=== PATIENT | male | born 1950 | race Caucasian/White ===

== ENCOUNTER 2019-02-12 19:39 | Observation (INO) ==
[2019-02-12] MEDS ORDERED: D5% in Water 1,000 ML IVC PRN (22:01)
[2019-02-12] MEDS ORDERED: Dextrose Gel 15 GM/37.5 ML TUBE PO PRN ×2 (22:01)
[2019-02-12] MEDS ORDERED: *HR* Dextrose 50 % in Water (Syg) 50 ML SYRINGE IVP PRN (22:01)
[2019-02-12] MEDS: Insulin DETEMIR 100 UNIT/ML X5UNITS SQ SCH (23:15)
[2019-02-12] MEDS: Insulin LISPRO 300 UNITS/3 ML VIAL SQ SCH (23:16)
[2019-02-13] MEDS ORDERED: *HR* Dextrose 50 % in Water (Vial) 50 ML VIAL IVP PRN (08:00)
[2019-02-13] MEDS: predniSONE 20 MG TABLET PO SCH (08:42)
[2019-02-13] MEDS: Insulin LISPRO 300 UNITS/3 ML VIAL SQ SCH ×4 (08:44→19:56)
--- NOTE | 2019-02-13 09:57 | Internal Med History&Physical ---
Date of Encounter: 02/13/19 Time of Encounter: 09:51 Assessment and Plan (1) Acute psychosis Current visit: No Status: Acute Pt with acute psychosis off this prescribed anti-psychotic. He was medically evaluated and cleared by psychiatry on day of admission at [facility] ED with recommendations to admit to observation with resumption of all home meds. He has a suspected underlying neurodegenerative process with psychosis such as lewy body dementia. Will resume seroquel at 50mg in AM and 100mg in PM given patient's agitation and difficulty with sleep. Will contact patient's outpatient pharmacy and try to assess why patient is prescribed prednisone and how long he has been taking. Will wean or discontinue if possible given underlying diabetes and psychosis. Will check labs in AM. (2) Cognitive and neurobehavioral dysfunction Current visit: Yes Status: Chronic Unclear etiology. 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 Will monitor with outpatient regimen with slight increase in quetiapine dosing. (3) Hypertension Current visit: Yes Status: Chronic Uncontrolled. Will increase outpatient beta-burak dose and monitor. Qualifiers: Hypertension type: unspecified Qualified Code(s): I10 - Essential (primary) hypertension (4) Hypothyroidism Current visit: Yes Status: Chronic Will continue replacement and repeat TSH. Qualifiers: Hypothyroidism type: unspecified Qualified Code(s): E03.9 - Hypothyroidism, unspecified (5) Depression Current visit: Yes Status: Chronic Qualifiers: Depression Type: unspecified Qualified Code(s): F32.9 - Major depressive disorder, single episode, unspecified (6) Subarachnoid cyst Current visit: No Status: Chronic Stable by recent imaging. Will monitor. (7) CKD (chronic kidney disease) stage 4, GFR 15-29 ml/min Current visit: No Status: Chronic GFR stable. Will monitor. (8) Hyperlipidemia Current visit: No Status: Chronic Stable. Will continue current statin regimen. Qualifiers: Hyperlipidemia type: unspecified Qualified Code(s): E78.5 - Hyperlipidemia, unspecified (9) Diabetes mellitus Current visit: No Status: Chronic Recent hgbA1c at goal. Will continue diabetic diet with basal insulin with sliding scale coverage. Qualifiers: Diabetes mellitus type: type 2 Diabetes mellitus [facility] insulin use: with [place] use Diabetes mellitus complication status: with kidney complications Diabetes mellitus complication detail: with chronic kidney disease Chronic kidney disease stage: stage 4 (severe) Qualified Code(s): E11.22 - Type 2 diabetes mellitus with diabetic chronic kidney disease; N18.4 - Chronic kidney disease, stage 4 (severe); Z79.4 - longterm (current) use of insulin Internal Medicine - H&P: HPI Chief complaint: Agitation Admitted From: Home Plans for Post Hospital Care: Home History of present illness: Mr. Bentley is a 68 year old male with underlying psychiatric condition, stage IV CKD, DM, and HTN that presented to [facility] ED with family who reported patient was more aggressive and agitated after being off his prescribed seroquel for several days. Patient has undergone fairly extensive medical and psychiatric evaluation over last 6 months for his persistent psychosis and cognitive impairment. Patient was suspected of having a mood disorder such as bipolar or a possible neurocognitive degenerative process such as a lewy body dementia. He was evaluated in the ED and had a negative medical work-up. He was then seen by psychiatry who recommended resumption of home seroquel dosing and monitoring rather than psychiatric admission. Pt was then transferred to the [facility] for observation admission to resume home seroquel and supportive care for his acute psychosis. Upon evaluation this morning, patient was uncertain as to why he is taking prednisone and how long he has been taking medication when asked. He notes that he feels better overall, but notes that he had trouble sleeping last night and attributes his insomnia to previously reduced seroquel dose, stating that he though much more clearly and slept better when on 200mg daily. He had no acute complaints or concerns. Family not present at time of examination to provide any collateral history. Past Med Surg Social Fam HX - Past Medical History Medical history: CHF, COPD, diabetes, hypertension, renal disease, thyroid disease Psychiatric history: anxiety, depression - Past Surgical History Surgical History: appendectomy Additional surgical history: Right Elbow - Social History Smoking Status: Former smoker Smokeless Tobacco Status: No Alcohol use: none Drug use: none - Family History Mother Family Member Ethnicity: Non- Living Status: Hx Family Cardiac Disorders: Yes Hx Family Respiratory Disorders: Yes Hx Family Cancer: Yes Hx Family GI Disorders: No Hx Family Endocrine Disorder: Yes Hx Family Neuromuscular Disorders: No Hx Family Neurologic Disorders: No Hx Family HEENT Disorders: No Hx Family Autoimmune Disorders: No Father Adopted: No Family Member Ethnicity: Non- Living Status: Hx Family Cardiac Disorders: Yes Hx Family Respiratory Disorders: Yes Hx Family Cancer: No Hx Family GI Disorders: No Hx Family Endocrine Disorder: Yes Hx Family Neuromuscular Disorders: No Hx Family Neurologic Disorders: No Hx Family HEENT Disorders: No Hx Family Autoimmune Disorders: No Internal Medicine - H&P: Meds Atorvastatin [Lipitor] 20 mg PO DAILY 10/18/17 [History] Cyclobenzaprine [Flexeril] 10 mg PO DAILY 10/18/17 [History] Insulin ASPART [NovoLOG] 35 unit SQ BIDWM 10/18/17 [History] Levothyroxine Sodium [Levo-T] 25 mcg PO DAILY 10/18/17 [History] Fluticasone Propionate Nasal [Flonase] 2 spray IN BID 11/16/18 [History] Insulin Glargine [Lantus] 16 units SQ BID 11/16/18 [History] Pioglitazone HCl 30 mg PO DAILY 11/16/18 [History] Amoxicillin/Clavulanate [Augmentin] 875 mg PO BIDWM tablet 11/23/18 [Rx] Cyanocobalamin (B-12) [Vitamin B12] 1,000 mcg PO DAILY tablet 11/23/18 [Rx] Haloperidol Lactate [Haldol] 2 mg IM Q6HR PRN vial 11/23/18 [Rx] Heparin 5,000 unit SQ Q12HCO vial 11/23/18 [Rx] Insulin LISPRO [HumaLOG] 0 units SQ HS vial 11/23/18 [Rx] Insulin LISPRO [HumaLOG] 0 units SQ TIDAC vial 11/23/18 [Rx] Metoprolol [Lopressor] 25 mg PO BID tablet 11/23/18 [Rx] Nicotine Patch [Nicoderm] 21 mg TD DAILY patch.td24 11/23/18 [Rx] Ondansetron [Zofran] 8 mg IVP Q6HR PRN vial 11/23/18 [Rx] Quetiapine Fumarate [Seroquel] 50 mg PO BID tablet 11/23/18 [Rx] Rivastigmine Patch [Exelon] 4.6 mg TD DAILY patch.td24 11/23/18 [Rx] Vitamin B Complex/Vit C/Vit E [Stresstab] 1 each PO DAILY tablet 11/23/18 [Rx] amLODIPine [Norvasc] 10 mg PO DAILY tablet 11/23/18 [Rx] cloNIDine HCl [CloNIDine HCl] 0.2 mg PO TID tablet 11/23/18 [Rx] hydrALAZINE [HydrALAZINE] 5 mg IVP Q10M PRN vial 11/23/18 [Rx] traZODone [TraZODone] 25 mg PO HS tablet 11/23/18 [Rx] Brimonidine Tartrate/Timolol [Combigan Eye Drops] 5 ml OP 02/12/19 [History] Brimonidine Tartrate/Timolol [Combigan Eye Drops] 5 ml OP DAILY 02/12/19 [History] Brinzolamide 1% [Azopt] 1 drop LEFT EYE BID 02/12/19 [History] Carvedilol 12.5 mg PO BID 02/12/19 [History] Donepezil [Aricept] 5 mg PO HS 02/12/19 [History] Levothyroxine [Synthroid] 25 mcg PO 0630 02/12/19 [History] Sertraline [Zoloft] 50 mg PO DAILY 02/12/19 [History] Zolpidem [Ambien] 10 mg PO HS 02/12/19 [History] predniSONE [PredniSONE] 20 mg PO DAILY 02/12/19 [History] Allergy/AdvReac Type Severity Reaction Status Date / Time Buspirone Allergy Intermediate Confusion Verified 01/09/19 15:13 venlafaxine AdvReac Confusion Verified 01/09/19 15:15 All Systems PM: A 10-system review of systems was performed and is negative for pertinent findings except as documented above in the HPI. - Constitutional Vitals: Temp Pulse Resp BP Pulse Ox 98.6 F 82 18 178/81 99 02/13/19 06:42 02/13/19 06:42 02/13/19 06:42 02/13/19 06:42 02/13/19 06:42 Exam: Gen: Lying in bed, NAD HEENT: NC, AT Neck: Trachea midline, no mass Pulm: No respiratory distress, CTAB CV: Normal S1 and S2, RRR Abdomen: Soft, ND, NT Ext: No C/C/E Neuro: No appreciable motor/sensor deficits Skin: Warm and dry, no rash Psych: A&Ox3 - VTE Reasons for not Prescribing Prophylaxis: Medical contraindication
[2019-02-13] MEDS: AZOPT 1% OP SCH ×2 (16:02→20:02)
[2019-02-13] MEDS: COMBIGAN OPH OP SCH ×3 (16:02→20:02)
[2019-02-13] MEDS: Insulin DETEMIR 100 UNIT/ML X5UNITS SQ SCH (20:01)
[2019-02-14] MEDS: Levothyroxine 25 MCG TABLET PO SCH (05:36)
[2019-02-14 06:08] LABS: Basophils % 0.4 %; Eosinophils # 0.1 K/mcL (0.0-0.6); Eosinophils % 1.5 %; Hematocrit 28.6 % (37.5-50.1); Hemoglobin 8.8 g/dL (12.9-16.9); Immature Granulocytes % 0.5 % (0-4); Lymphocytes # 1.5 K/mcL (0.6-4.6); Lymphocytes % 19.4 %; Mean Corpuscular HGB Conc 30.8 g/dL (31.6-35.5); Mean Corpuscular Hemoglobin 27.4 pg (28.0-33.3); Mean Corpuscular Volume 89.1 fL (83.0-100.0); Mean Platelet Volume 9.7 fL (9.4-12.4); Monocytes # 0.8 K/mcL (0.0-1.3); Monocytes % 10.7 %; Neutrophils # 5.3 K/mcL (1.6-8.9); Platelet Count 191 K/mcL (140-400); Red Blood Count 3.21 M/mcL (4.19-5.50); Segmented Neutrophils % 67.5 %; White Blood Count 7.8 K/mcL (4.3-11.1)
[2019-02-14] MEDS ORDERED: Albuterol 2.5 MG/3 ML NEBULIZER IH PRN (06:33)
[2019-02-14 06:57] LABS: Thyroid Stimulating Hormone 2.275 mcIU/mL (0.340-5.600)
[2019-02-14 07:21] LABS: Albumin 2.1 g/dL (3.5-5.7); Albumin/Globulin Ratio 0.9 (1.1-2.2); Bilirubin,Total 0.2 mg/dL (0.3-1.0); Calcium 7.8 mg/dL (8.6-10.3); Globulin 2.3 g/dL (2.4-3.5); Potassium 3.8 mEq/L (3.5-5.1); Total Protein 4.4 g/dL (6.4-8.9)
[2019-02-14] MEDS: predniSONE 20 MG TABLET PO SCH (08:46)
[2019-02-14] MEDS: Insulin LISPRO 300 UNITS/3 ML VIAL SQ SCH ×4 (08:47→20:15)
[2019-02-14] MEDS: AZOPT 1% OP SCH (09:10)
[2019-02-14] MEDS: COMBIGAN OPH OP SCH ×2 (09:10)
--- NOTE | 2019-02-14 09:40 | Internal Med Progress Note ---
Date of Encounter: 02/14/19 Time of Encounter: 09:38 - Assessment and plan (1) Acute psychosis Current Visit: No Status: Acute Assessment and plan: Appears to be resolving with seroquel resumption. Plan to continue current regimen and have social work consult in place for tomorrow to discuss living situation, home care needs, and assist with compliance with outpatient medication regimen. Recommend re-evaluate need for prednisone with family and/or pharmacy as steroids may be contributing to his psychosis. (2) Cognitive and neurobehavioral dysfunction Current Visit: Yes Status: Chronic Assessment and plan: Chronic. Stable and appears near baseline based on documentation. Possible underlying lewy body dementia. Will continue current donepezil dose and monitor. 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 Levemir dose reduced from 22 to 10 units. Will continue low dose correction insulin. Recommend re-evaluate need for prednisone with family and/or pharmacy. Qualifiers: Diabetes mellitus type: type 2 Diabetes mellitus [place] insulin use: with shelter use Diabetes mellitus complication status: with kidney complications Diabetes mellitus complication detail: with chronic kidney disease Chronic kidney disease stage: stage 4 (severe) Qualified Code(s): E11.22 - Type 2 diabetes mellitus with diabetic chronic kidney disease; N18.4 - Chronic kidney disease, stage 4 (severe); Z79.4 - group home (current) use of insulin (4) Hypertension Current Visit: Yes Status: Chronic Assessment and plan: Uncontrolled despite increase in beta-burak yesterday. Will add amlodipine and monitor. Qualifiers: Hypertension type: unspecified Qualified Code(s): I10 - Essential (primary) hypertension (5) Normocytic anemia Current Visit: Yes Status: Chronic Assessment and plan: Moderate. Hemoglobin near baseline over last month. Likely in part secondary to anemia of chronic disease given significantly reduced GFR. Will obtain anemia studies and repeat CBC in AM. (6) Hypothyroidism Current Visit: Yes Status: Chronic Assessment and plan: Well-controlled with normal TSH. Will continue current thyroid replacement dose. Qualifiers: Hypothyroidism type: unspecified Qualified Code(s): E03.9 - Hypothyroidism, unspecified (7) Depression Current Visit: Yes Status: Chronic Assessment and plan: Mood appears stable. Will continue current SSRI regimen. Qualifiers: Depression Type: unspecified Qualified Code(s): F32.9 - Major depressive disorder, single episode, unspecified (8) Subarachnoid cyst Current Visit: No Status: Chronic Assessment and plan: Stable by imaging. Will monitor. (9) CKD (chronic kidney disease) stage 4, GFR 15-29 ml/min Current Visit: No Status: Chronic Assessment and plan: GFR near baseline. Will monitor. (10) Hyperlipidemia Current Visit: No Status: Chronic Assessment and plan: Will continue current statin regimen. Qualifiers: Hyperlipidemia type: unspecified Qualified Code(s): E78.5 - Hyperlipidemia, unspecified - Time Spent With Patient 25 - 35 minutes - Subjective Interval history: There have been no acute events overnight. Patient has been less agitated overall and slept fairly well with increased seroquel dose. He did have an episode of symptomatic hypoglycemia this morning prior to breakfast. We have been unable to confirm with family or pharmacy why pt is taking prednisone and how long he has been on the medication. Patient is uncertain as well. - Constitutional Vitals: Temp Pulse Resp BP Pulse Ox 97.5 F L 97 17 154/105 99 02/14/19 06:45 02/14/19 06:45 02/14/19 06:45 02/14/19 06:45 02/14/19 06:45 Exam: Gen: Lying in bed, NAD HEENT: NC, AT Neck: Trachea midline, no mass Pulm: No respiratory distress, CTAB CV: Normal S1 and S2, RRR with occassional ectopic beat Abdomen: Soft, ND, NT Ext: No C/C/E Neuro: No appreciable motor/sensor deficits Skin: Warm and dry, no rash Psych: A&Ox3 Internal Medicine: Result - Labs CBC & Chem 7: 02/14/19 05:30 02/14/19 05:30 Labs: Short CBC 02/14/19 Range/Units 05:30 WBC 7.8 (4.3-11.1) K/mcL Hgb 8.8 L (12.9-16.9) g/dL Hct 28.6 L (37.5-50.1) % Plt Count 191 (140-400) K/mcL Neutrophils # 5.3 (1.6-8.9) K/mcL BMP 02/14/19 05:30 Sodium 139 Potassium 3.8 Chloride 108 H Carbon Dioxide 24 BUN 50 H Creatinine 3.25 H Glucose 49 L Calcium 7.8 L Liver Function 02/14/19 Range/Units 05:30 Total Bilirubin 0.2 L (0.3-1.0) mg/dL AST 15 (13-39) Units/L ALT 19 (7-52) Units/L Alkaline Phosphatase 70 (34-104) Units/L Albumin 2.1 L (3.5-5.7) g/dL - VTE Reasons for not Prescribing Prophylaxis: Medical contraindication Consult Discharge Plan - Plan Referrals: Stevo Corbin MD [Primary Care Provider] - 1 week
[2019-02-14] MEDS: amLODIPine 5 MG TABLET PO SCH (12:42)
[2019-02-14] MEDS: Artificial Tears SOLN 15 ML BOTTLE BOTH EYES SCH ×3 (16:29→20:16)
[2019-02-14] MEDS: *HR* Heparin 5,000 UNIT/ML VIAL SQ SCH ×2 (16:30→20:14)
[2019-02-14] MEDS: Insulin DETEMIR 100 UNIT/ML X5UNITS SQ SCH (20:15)
[2019-02-15] MEDS: Levothyroxine 25 MCG TABLET PO SCH (05:47)
[2019-02-15] MEDS: *HR* Heparin 5,000 UNIT/ML VIAL SQ SCH ×3 (05:47→20:58)
[2019-02-15] MEDS: Insulin LISPRO 300 UNITS/3 ML VIAL SQ SCH ×4 (08:12→21:02)
[2019-02-15] MEDS: predniSONE 20 MG TABLET PO SCH (08:50)
[2019-02-15] MEDS: Artificial Tears SOLN 15 ML BOTTLE BOTH EYES SCH ×4 (08:50→21:00)
[2019-02-15] MEDS: amLODIPine 5 MG TABLET PO SCH (08:50)
[2019-02-15] MEDS: Brinzolamide 1% 10 ML BOTTLE LEFT EYE SCH (08:53)
--- NOTE | 2019-02-15 10:02 | Internal Med Progress Note ---
Date of Encounter: 02/15/19 Time of Encounter: 09:50 - Assessment and plan (1) Acute psychosis Current Visit: No Status: Acute Assessment and plan: February 15. Nursing staff will contact pharmacy to obtain accurate home med list. Continue Seroquel 50 mg a.m. and 100 mg at bedtime for now. (2) Cognitive and neurobehavioral dysfunction Current Visit: Yes Status: Chronic Assessment and plan: February 15. Neurology consult 11/16/2018 reported no clinical features suggestive of Parkinson's disease or Lewy body disease. Continue to monitor. (3) Hypertension Current Visit: Yes Status: Chronic Assessment and plan: February 15. Continue Norvasc and Coreg Qualifiers: Hypertension type: unspecified Qualified Code(s): I10 - Essential (primary) hypertension (4) Chronic kidney disease, stage IV (severe) Current Visit: No Status: Chronic Assessment and plan: February 15. Monitor renal indices. (5) Hypothyroidism Current Visit: Yes Status: Chronic Assessment and plan: February 15. TSH normal at 2.275 on 02/14/2019. Continue present dose Synthroid. Qualifiers: Hypothyroidism type: unspecified Qualified Code(s): E03.9 - Hypothyroidism, unspecified (6) Diabetes mellitus Current Visit: No Status: Chronic Assessment and plan: February 15. Hemoglobin A1c acceptable at 5.8% on 11/23/2018. Accu-Cheks acceptable. Continue Levemir and Accu-Cheks/SSI. Qualifiers: Diabetes mellitus type: type 2 Diabetes mellitus group home insulin use: with group home use Diabetes mellitus complication status: with kidney complications Diabetes mellitus complication detail: with chronic kidney disease Chronic kidney disease stage: stage 4 (severe) Qualified Code(s): E11.22 - Type 2 diabetes mellitus with diabetic chronic kidney disease; N18.4 - Chronic kidney disease, stage 4 (severe); Z79.4 - half-way (current) use of insulin (7) Normocytic anemia Current Visit: Yes Status: Chronic Assessment and plan: February 15. Anemia testing 01/07/2019 showed iron 26, transferrin saturation 9%, transferrin 203, ferritin 54, B12 677, and folate 4.3. Will order trial of ferrous sulfate with ascorbic acid and monitor. (8) Weakness Current Visit: Yes Status: Acute Assessment and plan: February 15. PT and OT evaluations will be ordered. (9) CKD (chronic kidney disease) stage 4, GFR 15-29 ml/min Current Visit: No Status: Chronic Assessment and plan: February 15. Monitor renal indices. - Subjective Interval history: February 15. No new problems have arisen. - Constitutional Vitals: Temp Pulse Resp BP Pulse Ox 97.8 F 85 16 143/76 99 02/15/19 06:51 02/15/19 06:51 02/15/19 06:51 02/15/19 06:51 02/15/19 06:51 Exam: He is resting comfortably in bed and appears in no acute distress. He answers questions appropriately. Heart is irregular but I cannot tell if it is regularly or irregularly irregular. Lungs are clear. Extremities show no edema. I reviewed his medications and lab results. Internal Medicine: Result - Labs CBC & Chem 7: 02/14/19 05:30 02/14/19 05:30 - VTE Reasons for not Prescribing Prophylaxis: Medical contraindication Consult Discharge Plan - Plan Referrals: Stevo Corbin MD [Primary Care Provider] - 1 week
[2019-02-15] MEDS: Insulin DETEMIR 100 UNIT/ML X5UNITS SQ SCH (21:09)
[2019-02-16] MEDS: *HR* Heparin 5,000 UNIT/ML VIAL SQ SCH (05:35)
[2019-02-16] MEDS: Levothyroxine 25 MCG TABLET PO SCH (05:35)
[2019-02-16] MEDS ORDERED: Ascorbic Acid 500 MG TABLET PO SCH (06:30)
[2019-02-16 07:08] VITALS: BP 182/97
[2019-02-16] MEDS: Insulin LISPRO 300 UNITS/3 ML VIAL SQ SCH ×2 (07:30→12:04)
[2019-02-16] MEDS: amLODIPine 5 MG TABLET PO SCH (07:35)
[2019-02-16] MEDS: Artificial Tears SOLN 15 ML BOTTLE BOTH EYES SCH (07:40)
[2019-02-16] MEDS: Brinzolamide 1% 10 ML BOTTLE LEFT EYE SCH (07:41)
--- NOTE | 2019-02-16 09:48 | Discharge Summary ---
Date of Encounter: 02/16/19 Time of Encounter: 09:25 - Discharge Diagnosis (1) Acute psychosis Priority: Primary Status: Acute (2) Cognitive and neurobehavioral dysfunction Priority: Secondary Status: Chronic (3) Hypertension Priority: Secondary Status: Chronic Qualifiers: Hypertension type: unspecified Qualified Code(s): I10 - Essential (primary) hypertension (4) Chronic kidney disease, stage IV (severe) Priority: Secondary Status: Chronic (5) Hypothyroidism Priority: Secondary Status: Chronic Qualifiers: Hypothyroidism type: unspecified Qualified Code(s): E03.9 - Hypothyroidism, unspecified (6) Diabetes mellitus Priority: Secondary Status: Chronic Qualifiers: Diabetes mellitus type: type 2 Diabetes mellitus custodial insulin use: with application support engineer use Diabetes mellitus complication status: with kidney complications Diabetes mellitus complication detail: with chronic kidney disease Chronic kidney disease stage: stage 4 (severe) Qualified Code(s): E11.22 - Type 2 diabetes mellitus with diabetic chronic kidney disease; N18.4 - Chronic kidney disease, stage 4 (severe); Z79.4 - halfway (current) use of insulin (7) Normocytic anemia Priority: Secondary Status: Chronic (8) Weakness Priority: Secondary Status: Acute Hospital course: Mr. Bentley is a 68 year old male with underlying psychiatric condition, stage IV CKD, DM, and HTN that presented to [facility] ED with family who reported patient was more aggressive and agitated after being off his prescribed seroquel for several days. Patient has undergone fairly extensive medical and psychiatric evaluation over last 6 months for his persistent psychosis and cognitive impairment. Patient was suspected of having a mood disorder such as bipolar or a possible neurocognitive degenerative process such as a lewy body dementia. He was evaluated in the ED and had a negative medical work-up. He was then seen by psychiatry who recommended resumption of home seroquel dosing and monitoring rather than psychiatric admission. Pt was then transferred to the [facility] for observation admission to resume home seroquel and supportive care for his acute psychosis. Initial orders were written by the emergency room physician. Dr. Dong Castillo saw him on February 13 and performed the history and physical. I assumed care on February 15. He was restarted on Seroquel. When I saw him he had no agitation or aggression. MMSE was done with a score of 24/30 attained despite not able to answer the last 3 questions because of impaired vision. Medications were adjusted and he felt improved on February 16 and stable for discharge home. He declined offer to return to SNF. He will have home health services ordered. He will follow with his PCP Dr. Corbin within 1 week. Anemia testing showed iron 26, transferrin saturation 9%, transferrin 203, ferritin 54, B12 677, and folate 4.3. He was started on ferrous sulfate with ascorbic acid. - Time Spent with Patient Total time spent providing and/or coordinating discharge services: - Discharge Medications Prescriptions: New Carvedilol [Coreg] 25 mg PO BID #60 tablet Ferrous Sulfate 325 mg PO 0630 #30 tablet Quetiapine Fumarate [Seroquel] 100 mg PO HS #45 tablet Ascorbic Acid [Vitamin C] 500 mg PO 0630 #30 tablet Continued Atorvastatin [Lipitor] 20 mg PO DAILY Levothyroxine Sodium [Levo-T] 25 mcg PO DAILY Insulin ASPART [NovoLOG] 35 unit SQ BIDWM Fluticasone Propionate Nasal [Flonase] 2 spray IN BID Insulin Glargine [Lantus] 16 units SQ BID Pioglitazone HCl 30 mg PO DAILY Nicotine Patch [Nicoderm] 21 mg TD DAILY patch.td24 Ondansetron [Zofran] 8 mg IVP Q6HR PRN vial PRN Reason: Nausea And Vomiting Insulin LISPRO [HumaLOG] 0 units SQ TIDAC vial Insulin LISPRO [HumaLOG] 0 units SQ HS vial Vitamin B Complex/Vit C/Vit E [Stresstab] 1 each PO DAILY tablet Brinzolamide 1% [Azopt] 1 drop LEFT EYE BID Brimonidine Tartrate/Timolol [Combigan 0.2%-0.5% Eye Drops] 5 ml OP DAILY Levothyroxine [Synthroid] 25 mcg PO 0630 Sertraline [Zoloft] 50 mg PO DAILY Brimonidine Tartrate/Timolol [Combigan 0.2%-0.5% Eye Drops] 5 ml OP Changed cloNIDine HCl [CloNIDine HCl] 0.1 mg PO Q8H #90 tablet amLODIPine [Norvasc] 5 mg PO DAILY #30 tablet traZODone [TraZODone] 50 mg PO HS #30 tablet Discontinued Cyclobenzaprine [Flexeril] 10 mg PO DAILY Amoxicillin/Clavulanate [Augmentin] 875 mg PO BIDWM tablet Rivastigmine Patch [Exelon] 4.6 mg TD DAILY patch.td24 Heparin 5,000 unit SQ Q12HCO vial Metoprolol [Lopressor] 25 mg PO BID tablet hydrALAZINE [HydrALAZINE] 5 mg IVP Q10M PRN vial PRN Reason: Blood Pressure - High Haloperidol Lactate [Haldol] 2 mg IM Q6HR PRN vial PRN Reason: Delerium Quetiapine Fumarate [Seroquel] 50 mg PO BID tablet Cyanocobalamin (B-12) [Vitamin B12] 1,000 mcg PO DAILY tablet Zolpidem [Ambien] 10 mg PO HS predniSONE [PredniSONE] 20 mg PO DAILY Donepezil [Aricept] 5 mg PO HS Carvedilol 12.5 mg PO BID Home Medications: Atorvastatin [Lipitor] 20 mg PO DAILY 10/18/17 [History] Insulin ASPART [NovoLOG] 35 unit SQ BIDWM 10/18/17 [History] Levothyroxine Sodium [Levo-T] 25 mcg PO DAILY 10/18/17 [History] Fluticasone Propionate Nasal [Flonase] 2 spray IN BID 11/16/18 [History] Insulin Glargine [Lantus] 16 units SQ BID 11/16/18 [History] Pioglitazone HCl 30 mg PO DAILY 11/16/18 [History] Insulin LISPRO [HumaLOG] 0 units SQ HS vial 11/23/18 [Rx] Insulin LISPRO [HumaLOG] 0 units SQ TIDAC vial 11/23/18 [Rx] Nicotine Patch [Nicoderm] 21 mg TD DAILY patch.td24 11/23/18 [Rx] Ondansetron [Zofran] 8 mg IVP Q6HR PRN vial 11/23/18 [Rx] Vitamin B Complex/Vit C/Vit E [Stresstab] 1 each PO DAILY tablet 11/23/18 [Rx] Brimonidine Tartrate/Timolol [Combigan 0.2%-0.5% Eye Drops] 5 ml OP 02/12/19 [History] Brimonidine Tartrate/Timolol [Combigan 0.2%-0.5% Eye Drops] 5 ml OP DAILY 02/12/19 [History] Brinzolamide 1% [Azopt] 1 drop LEFT EYE BID 02/12/19 [History] Levothyroxine [Synthroid] 25 mcg PO 0630 02/12/19 [History] Sertraline [Zoloft] 50 mg PO DAILY 02/12/19 [History] Ascorbic Acid [Vitamin C] 500 mg PO 0630 #30 tablet 02/16/19 [Rx] Carvedilol [Coreg] 25 mg PO BID #60 tablet 02/16/19 [Rx] Ferrous Sulfate 325 mg PO 0630 #30 tablet 02/16/19 [Rx] Quetiapine Fumarate [Seroquel] 100 mg PO HS #45 tablet 02/16/19 [Rx] amLODIPine [Norvasc] 5 mg PO DAILY #30 tablet 02/16/19 [Rx] cloNIDine HCl [CloNIDine HCl] 0.1 mg PO Q8H #90 tablet 02/16/19 [Rx] traZODone [TraZODone] 50 mg PO HS #30 tablet 02/16/19 [Rx] Allergies/Adverse Reactions: Allergy/AdvReac Type Severity Reaction Status Date / Time Buspirone Allergy Intermediate Confusion Verified 01/09/19 15:13 venlafaxine AdvReac Confusion Verified 01/09/19 15:15 Date of admission: 02/12/19 19:50 Primary care physician: Stevo Corbin MD Consults: 02/13/19 07:05 Consult to Podiatric Aide [CONS] Routine Reason for SW Consult: Patient may need home health services, Family concerns about patient not getting medication at home, Family reports a pending APS case. 02/15/19 10:13 Consult to Occupational Therapy [CONS] Routine Comment: Evaluate, develop and implement POC Reason for Consult: Weakness Does patient have active BEDREST order?: No Is patient medically & hemodynamically stable?: Yes Patient assessed for mobility or mobilized this visit?: Yes Consult to Physical Therapy [CONS] Routine Comment: Evaluate, develop and implement POC Reason for Consult: Weakness Does patient have active BEDREST order?: No Is patient medically & hemodynamically stable?: Yes Patient assessed for mobility or mobilized this visit?: Yes - Constitutional Vitals: Temp Pulse Resp BP Pulse Ox 98.2 F 69 18 182/97 100 02/16/19 07:07 02/16/19 07:07 02/16/19 07:07 02/16/19 07:07 02/16/19 07:07 - Patient Status Disposition: Home Health Service - Discharge Instructions Follow Up With: Stevo Corbin MD [Primary Care Provider] - 1 week - Diet and Activity Activity: resume usual activities as tolerated Diet: diabetic diet - VTE Reasons for not Prescribing Prophylaxis: Medical contraindication Documentation of Mechanical Device: Graduated compression elastic hosiery
--- NOTE | 2019-02-16 09:55 | Physician Discharge Referral ---
Home Health/Hosp Referral Info Transfer to: Home Health Attending Provider: Howard Provider in Charge Post Discharge: PCP (Coribn) - Diagnosis (1) Acute psychosis Priority: Primary Status: Acute (2) Cognitive and neurobehavioral dysfunction Priority: Secondary Status: Chronic (3) Hypertension Priority: Secondary Status: Chronic (4) Chronic kidney disease, stage IV (severe) Priority: Secondary Status: Chronic (5) Hypothyroidism Priority: Secondary Status: Chronic (6) Diabetes mellitus Priority: Secondary Status: Chronic (7) Normocytic anemia Priority: Secondary Status: Chronic (8) Weakness Priority: Secondary Status: Acute - Respiratory Orders Smoking Cessation: Smoking cessation has been advised. For more information, call the [place] Tobacco Quit Line at 9-494-NZNR-NOW. - Diet/Nutrition Diet/Nutrition Orders: No Concentrated Sweets - Activity Activity Orders: Ambulate - Services Needed Following services are medically necessary services: Nursing, Home Health Aide, Physical Therapy, Occupational Therapy - Transfer Medications Prescriptions: cloNIDine HCl [CloNIDine HCl] 0.1 mg PO Q8H #90 tablet Carvedilol [Coreg] 25 mg PO BID #60 tablet Ferrous Sulfate 325 mg PO 0630 #30 tablet amLODIPine [Norvasc] 5 mg PO DAILY #30 tablet Quetiapine Fumarate [Seroquel] 100 mg PO HS #45 tablet traZODone [TraZODone] 50 mg PO HS #30 tablet Ascorbic Acid [Vitamin C] 500 mg PO 0630 #30 tablet Home Medications: Atorvastatin [Lipitor] 20 mg PO DAILY 10/18/17 [History] Insulin ASPART [NovoLOG] 35 unit SQ BIDWM 10/18/17 [History] Levothyroxine Sodium [Levo-T] 25 mcg PO DAILY 10/18/17 [History] Fluticasone Propionate Nasal [Flonase] 2 spray IN BID 11/16/18 [History] Insulin Glargine [Lantus] 16 units SQ BID 11/16/18 [History] Pioglitazone HCl 30 mg PO DAILY 11/16/18 [History] Insulin LISPRO [HumaLOG] 0 units SQ HS vial 11/23/18 [Rx] Insulin LISPRO [HumaLOG] 0 units SQ TIDAC vial 11/23/18 [Rx] Nicotine Patch [Nicoderm] 21 mg TD DAILY patch.td24 11/23/18 [Rx] Ondansetron [Zofran] 8 mg IVP Q6HR PRN vial 11/23/18 [Rx] Vitamin B Complex/Vit C/Vit E [Stresstab] 1 each PO DAILY tablet 11/23/18 [Rx] Brimonidine Tartrate/Timolol [Combigan 0.2%-0.5% Eye Drops] 5 ml OP 02/12/19 [History] Brimonidine Tartrate/Timolol [Combigan 0.2%-0.5% Eye Drops] 5 ml OP DAILY 02/12/19 [History] Brinzolamide 1% [Azopt] 1 drop LEFT EYE BID 02/12/19 [History] Levothyroxine [Synthroid] 25 mcg PO 0630 02/12/19 [History] Sertraline [Zoloft] 50 mg PO DAILY 02/12/19 [History] Ascorbic Acid [Vitamin C] 500 mg PO 0630 #30 tablet 02/16/19 [Rx] Carvedilol [Coreg] 25 mg PO BID #60 tablet 02/16/19 [Rx] Ferrous Sulfate 325 mg PO 0630 #30 tablet 02/16/19 [Rx] Quetiapine Fumarate [Seroquel] 100 mg PO HS #45 tablet 02/16/19 [Rx] amLODIPine [Norvasc] 5 mg PO DAILY #30 tablet 02/16/19 [Rx] cloNIDine HCl [CloNIDine HCl] 0.1 mg PO Q8H #90 tablet 02/16/19 [Rx] traZODone [TraZODone] 50 mg PO HS #30 tablet 02/16/19 [Rx] Allergies/Adverse Reactions: Allergy/AdvReac Type Severity Reaction Status Date / Time Buspirone Allergy Intermediate Confusion Verified 01/09/19 15:13 venlafaxine AdvReac Confusion Verified 01/09/19 15:15 Certification: Further, I certify that my clinical findings support that this patient is homebound (i.e. absences from home require considerable and taxing effort and are for medical reasons or mandaeism services or infrequently or short duration when for other reasons) because: Homebound Reason: Leaving home requires considerable and taxing effort due to condition (Impaired vision, psychosis) Attestation: My signature below is to certify that this patient is under my care and that I, or nurse practitioner, or a physician's psychiatric technician assistant working with me, has a [id number] encounter with this patient.
== END 2019-02-16 13:00 | disposition home health service (06) ==
LOC: INPPIK
PROVIDERS: ADMIT Internal Medicine; ATTEND Internal Medicine